=== PATIENT | male | born 1980 | race Caucasian/White ===

== ENCOUNTER 2025-03-13 18:24 | Inpatient (IN) | payer MEDICAID ==
[~2025-03-13] VITALS: Ht 182.9 cm; Wt 95.7 kg
[2025-03-13 20:06] LABS: PLATELET COUNT (AUTO) 171 K/uL (150-450); RED BLOOD CELL COUNT(AUTO) 3.99 MIL/uL (4.5-6.0); RED CELL DISTRIBUTION WIDTH 14.4 % (11.5-15.0); WHITE BLOOD COUNT (AUTO) 6.4 K/uL (4.3-11.0)
[2025-03-13 20:20] LABS: CALCIUM, SERUM 8.6 mg/dL (8.5-10.1); CREATININE 0.6 mg/dL (0.6-1.3); SODIUM SERUM 139 mmol/L (136-145); UREA NITROGEN, BLOOD 14 mg/dL (7-18)
[2025-03-13 20:26] LABS: ASPARTATE AMINOTRANSFERASE 37 U/L (15-37); TOTAL PROTEIN, SERUM 6.2 g/dL (6.4-8.2)
[2025-03-13 20:30] LABS: ALCOHOL, BLOOD < 3 mg/dL (0-10)
[2025-03-13 20:59] LABS: APPEARANCE,URINE CLEAR (CLEAR); BLOOD, URINE NEGATIVE Ery/uL (NEGATIVE); LEUKOCYTE ESTERASE ,URINE NEGATIVE (NEGATIVE); NITRITE, URINE NEGATIVE (NEGATIVE); UGLUCOSE NEGATIVE (NEGATIVE)
[2025-03-13 21:06] LABS: AMPHETAMINE, URINE NEGATIVE (NEGATIVE); CANNABINOID, URINE NEGATIVE (NEGATIVE); COCCAINE, URINE NEGATIVE (NEGATIVE); OPIATE, URINE NEGATIVE (NEGATIVE)
[2025-03-13 21:09] LABS: BARBITURATE, URINE POSITIVE (NEGATIVE); BENZODIAZEPINE, URINE POSITIVE (NEGATIVE)
[2025-03-13 21:10] LABS: ADD URINE CULTURE NO; SQUAMOUS EPITHELIAL CELL,UR 0-2 /HPF (None Seen)
[2025-03-13] MEDS ORDERED: LORAZEPAM INJ 2 MG/ML VIAL IV PRN (22:30)
[2025-03-13] MEDS ORDERED: MAGNESIUM HYDROXIDE 30 ML UDC PO PRN (22:30)
[2025-03-13] MEDS ORDERED: MAG HYDROX/AL HYDROX/SIMETH 30 ML UDC PO PRN (22:30)
[2025-03-13] MEDS ORDERED: ONDANSETRON HCL/PF 4 MG/2 ML VIAL IVP PRN (22:30)
[2025-03-13] MEDS ORDERED: Z GUARD REMEDY 4 OZ OINT TP PRN (22:30)
[2025-03-13] MEDS ORDERED: ACETAMINOPHEN 325 MG TABLET PO PRN (22:30)
[2025-03-13 23:00] VITALS: BP 122/78; TEMP 97.7; O2SAT 95
[2025-03-13] MEDS: CHLORDIAZEPOXIDE HCL 25 MG CAPSULE PO SCH (23:11)
[2025-03-14] VITALS: BP 103/75; TEMP 97.7; O2SAT 96
[2025-03-14 04:00] VITALS: BP 102/66; TEMP 97.9; O2SAT 96
[2025-03-14 07:01] LABS: PLATELET COUNT (AUTO) 201 K/uL (150-450); RED BLOOD CELL COUNT(AUTO) 4.01 MIL/uL (4.5-6.0); RED CELL DISTRIBUTION WIDTH 14.3 % (11.5-15.0); WHITE BLOOD COUNT (AUTO) 5.9 K/uL (4.3-11.0)
[2025-03-14 07:16] LABS: CALCIUM, SERUM 8.7 mg/dL (8.5-10.1); CREATININE 0.7 mg/dL (0.6-1.3); PHOSPHORUS 4.1 mg/dL (2.5-4.9); SODIUM SERUM 141.0 mmol/L (136-145); UREA NITROGEN, BLOOD 13.0 mg/dL (7-18)
[2025-03-14 07:25] LABS: LDL 82.0 mg/dL (0-99)
[2025-03-14 08:00] VITALS: BP 109/74; TEMP 97.7; O2SAT 94
[2025-03-14] MEDS ORDERED: BUPR300T52 PO (08:03)
[2025-03-14] MEDS ORDERED: BICT1TAB PO (08:03)
[2025-03-14] MEDS ORDERED: QUET100T PO (08:03)
[2025-03-14] MEDS ORDERED: ATOR80TA PO (08:03)
[2025-03-14] MEDS ORDERED: PREG225C PO (08:03)
[2025-03-14] MEDS ORDERED: DULO60CA45 PO (08:03)
[2025-03-14] MEDS ORDERED: ROPI0.252 PO (08:03)
[2025-03-14] MEDS ORDERED: DULO30CA2 PO (08:03)
[2025-03-14] MEDS: PANTOPRAZOLE 40 MG TABLET.DR PO SCH (08:17)
[2025-03-14] MEDS: PREGABALIN 100 MG CAPSULE PO SCH ×2 (08:17→17:59)
[2025-03-14] MEDS: THIAMINE HCL 100 MG TABLET PO SCH (08:18)
[2025-03-14] MEDS: DULOXETINE HCL 30 MG CAPSULE.DR PO SCH ×3 (08:18→21:26)
[2025-03-14] MEDS: FOLIC ACID 1 MG TABLET PO SCH (08:18)
[2025-03-14 12:00] VITALS: BP 111/79; TEMP 98.3; O2SAT 92
[2025-03-14] MEDS: BIKTARVY 50-200-25 MG TABLET NF PO SCH (12:00)
[2025-03-14] MEDS: BUPROPION XL 150 MG TAB.ER.24 PO SCH (12:36)
[2025-03-14 16:00] VITALS: BP 110/81; TEMP 98.5; O2SAT 96
[2025-03-14] MEDS: PREGABALIN 25 MG CAPSULE PO SCH (17:59)
[2025-03-14] MEDS: LORAZEPAM 1 MG TABLET PO PRN (18:47)
[2025-03-14 20:00] VITALS: BP 117/85; TEMP 97.3; O2SAT 96; O2SAT 98
[2025-03-14] MEDS: QUETIAPINE FUMARATE 100 MG TABLET PO SCH (21:27)
[2025-03-14] MEDS: ATORVASTATIN 40 MG TABLET PO SCH (21:27)
[2025-03-14] MEDS ORDERED: QUETIAPINE FUMARATE 25 MG TABLET PO SCH (22:00)
[2025-03-14] MEDS ORDERED: ATORVASTATIN 40 MG TABLET PO SCH (22:00)
[2025-03-15] VITALS: BP 107/72; TEMP 97.5; O2SAT 93
[2025-03-15 04:00] VITALS: BP 101/70; TEMP 97.5; O2SAT 92
[2025-03-15 08:00] VITALS: BP 100/66; TEMP 97.4; O2SAT 93
[2025-03-15] MEDS: LORAZEPAM 1 MG TABLET PO PRN (09:27)
[2025-03-15 12:01] VITALS: BP 103/68; TEMP 97.5; O2SAT 92
[2025-03-15] MEDS ORDERED: FOLI0.8T7 PO (13:13)
== END 2025-03-15 14:18 | disposition home or self-care (01) | DRG 53 ==
LOC: ER 18:52 → TELE1 21:07 → MEDSG1 03-15 10:07
PROVIDERS: ADMIT Registered Nurse Psychiatric/Mental Health; ATTEND Nurse Practitioner Acute Care
DX: G40.909 Epilepsy, unspecified, not intractable, without status epilepticus (principal); R45.851 Suicidal ideations; E44.1 Mild protein-calorie malnutrition; I50.9 Heart failure, unspecified; E88.09 Other disorders of plasma-protein metabolism, not elsewhere classified; I11.0 Hypertensive heart disease with heart failure; K74.60 Unspecified cirrhosis of liver; F10.939 Alcohol use, unspecified with withdrawal, unspecified; Y90.0 Blood alcohol level of less than 20 mg/100 ml; Z20.822 Contact with and (suspected) exposure to COVID-19; F20.9 Schizophrenia, unspecified; F17.200 Nicotine dependence, unspecified, uncomplicated; D64.9 Anemia, unspecified; Z79.899 Other long term (current) drug therapy; Z88.8 Allergy status to other drugs, medicaments and biological substances
CPT/HCPCS: 36415; 80048-TC; 80061-TC; 80076-TC; 81001; 83735-TC; 84100-TC; 85025-TC; 87081-TC; 93307-TC; 98960; G0378; G0480